=== PATIENT | male | born 1980 | race Caucasian/White ===

== ENCOUNTER 2023-08-07 11:21 | Emergency (ER) | payer OTHER, SELFPAY ==
[~2023-08-07] VITALS: Ht 172.7 cm; Wt 99.8 kg
[2023-08-07] MEDS ORDERED: METOCLOPRAMIDE INJ 10MG/2ML VIAL IV ONE (12:45)
[2023-08-07] MEDS ORDERED: ACETAMINOPHEN *IV* 1,000 MG in IV 1 EA IV ONE (12:45)
[2023-08-07 13:09] LABS: BASO % 0.7 % (0.0-1.0); EOS % 0.5 % (0.0-3.0); HEMATOCRIT 51.9 % (42.0-52.0); HEMOGLOBIN 17.8 g/dl (13.5-17.5); LYMPH # 1.3 10^3/uL (1.5-5.0); LYMPH % 22.1 % (24.0-44.0); MEAN CORPUSCULAR HEMOGLOBIN 29.9 pg (27.0-33.0); MEAN CORPUSCULAR HGB CONC 34.3 g/dl (32.0-36.5); MEAN CORPUSCULAR VOLUME 87.2 fl (80.0-96.0); MONO # 0.3 10^3/uL (0.0-0.8); MONO % 4.7 % (2.0-8.0); NEUTROPHILS # 4.2 10^3/uL (1.5-8.5); NEUTROPHILS % 71.7 % (36.0-66.0); PLATELET COUNT, AUTOMATED 319 10^3/uL (150-450); RED BLOOD COUNT 5.95 10^6/uL (4.30-6.10); WHITE BLOOD COUNT 5.9 10^3/uL (4.0-10.0)
[2023-08-07 13:32] LABS: ERYTHROCYTE SEDIMENTATION RATE 15 mm/hr (0-15)
[2023-08-07 13:36] LABS: C REACTIVE PROTEIN QUANTITATIV < 0.40 MG/DL (<1.0)
[2023-08-07 13:51] LABS: BLOOD UREA NITROGEN 14 MG/DL (9-23); CALCIUM LEVEL 10.2 MG/DL (8.5-10.1); CARBON DIOXIDE LEVEL 30 MMOL/L (20-31); CHLORIDE LEVEL 103 MMOL/L (98-107); CREATININE FOR GFR 0.81 MG/DL (0.70-1.30); GLOMERULAR FILTRATION RATE > 60.0 (>60); GLUCOSE, FASTING 117 MG/DL (60-100); MAGNESIUM LEVEL 2.3 MG/DL (1.8-2.4); POTASSIUM SERUM 5.2 MMOL/L (3.5-5.1); SODIUM LEVEL 138 MMOL/L (136-145)
[2023-08-07] MEDS ORDERED: ISOVUE-370 76% 100ML VIAL As Ordered ONE (13:55)
[2023-08-07] MEDS ORDERED: MECLIZINE 25 MG TABLET PO ONE (16:30)
[2023-08-07] MEDS ORDERED: KETOROLAC 30 MG/ML 1ML VIAL IV ONE (16:30)
[2023-08-07] MEDS ORDERED: VALPROATE SOD INJ 1,000 MG in D5W 50 ML IV ONE (17:05)
[2023-08-07 18:10] VITALS: BP 133/88; TEMP 97.9; O2SAT 95
[2023-08-07] MEDS ORDERED: MECL-209 PO (18:34)
[2023-08-07] MEDS ORDERED: AMIT25TA19 PO (18:34)
[2023-08-07] MEDS ORDERED: DEPA250T32 PO (18:34)
[2023-08-07] MEDS ORDERED: AMITRIPTYLINE 25MG TABLET PO STA (18:44)
== END 2023-08-07 18:53 | disposition home or self-care (01) ==
LOC: M ED 11:21
DX: S09.90XA Unspecified injury of head, initial encounter (principal); V86.95XA Unspecified occupant of 3- or 4- wheeled all-terrain vehicle (ATV) injured in nontraffic accident, initial encounter; R51.9 Headache, unspecified; R42 Dizziness and giddiness
CPT/HCPCS: 70450; 70496; 70498; 80048; 83735; 85025; 85652; 86140; 96365; 96375; 99284; J0131; J1885; J2765; Q9967

== ENCOUNTER 2025-08-24 11:19 | Emergency (ER) | payer OTHER, SELFPAY ==
[~2025-08-24] VITALS: Ht 172.7 cm; Wt 99.4 kg
[~2025-08-24 11:19] MED LIST: AMIT25TA19 PO; DIVA-65 PO; MECL-209 PO
[2025-08-24 11:28] VITALS: BP 144/90; TEMP 97.6; O2SAT 96
[2025-08-24] MEDS: LIDOCAINE 2% MDV 20 ML VIAL SC ONE (13:10)
== END 2025-08-24 14:13 | disposition home or self-care (01) ==
LOC: M ED 11:19
DX: S61.412A Laceration without foreign body of left hand, initial encounter (principal); Y92.019 Unspecified place in single-family (private) house as the place of occurrence of the external cause; Y93.9 Activity, unspecified; Y99.9 Unspecified external cause status; W26.0XXA Contact with knife, initial encounter; Z91.013 Allergy to seafood